=== PATIENT | female | born 1965 | race Caucasian/White ===

== ENCOUNTER 2018-11-27 17:30 | Emergency (ER) | payer OTHER ==
[2018-11-27 18:48] VITALS: BP 132/69; PULSE 86; RESP 18; TEMP 98.5
[2018-11-27] MEDS ORDERED: KETOROLAC 60 MG/2 ML VIAL IM STA (19:39)
--- NOTE | 2018-11-27 19:41 | ED ---
General Adult HPI - General Chief complaint: Extremity Injury, Lower Stated complaint: rt sided hip pain Time Seen by Provider: 11/27/18 18:54 Source: patient, RN notes reviewed, old records reviewed Mode of arrival: ambulatory Limitations: no limitations - History of Present Illness Initial comments: 53-year-old female patient with no pertinent past history presents to ED with approximately 5 months of pain in lumbar spine that radiates down posterior right leg. Patient describes it as a sharp stabbing and burning pain. Patient has tried multiple remedies for this including physical therapy, chiropractor, none of which have been ultimately effective. Patient reports that the pain waxes and wanes. It is worse with exertion. Patient denies any loss of bowel or bladder control, lower extremity weakness, saddle anesthesia, fever/chills, IV drug use. Patient is ambulatory without difficulty. Patient denies all other complaints. Systemic: Pt denies fatigue, fever/chills, rash. Pt denies weakness, night sweats, weight loss. Neuro: Pt denies headache, visual disturbances, syncope or pre-syncope. HEENT: Pt denies ocular discharge or irritation, otalgia, rhinorrhea, pharyngitis or notable lymphadenopathy. Cardiopulmonary: Pt denies chest pain, SOB, heart palpitations, dyspnea on exertion. Abdominal/GI: Pt denies abdominal pain, n/v/d. : Pt denies dysuria, burning w/ urination, frequency/urgency. Denies new onset urinary or bowel incontinence. MSK: Pt denies loss of strength or function in extremities. Neuro: Pt denies new onset weakness, paresthesias. - Related Data Home Medications Medication Instructions Recorded Confirmed Hydrochlorothiazide [Hydrodiuril] 25 mg PO BID 05/02/14 03/15/15 Previous Rx's Medication Instructions Recorded traMADol HCl [Ultram] 50 mg PO Q6H PRN #20 tab 03/15/15 Ibuprofen [Motrin] 600 mg PO Q6HR PRN #40 day 11/27/18 predniSONE 50 mg PO DAILY #5 tab 11/27/18 Allergies Allergy/AdvReac Type Severity Reaction Status Date / Time codeine Allergy Nausea & Verified 11/27/18 18:43 Vomiting Review of Systems ROS Statement: Those systems with pertinent positive or pertinent negative responses have been documented in the HPI. ROS Other: All systems not noted in ROS Statement are negative. Past Medical History Additional Past Medical History / Comment(s): RENAL CALCULUS History of Any Multi-Drug Resistant Organisms: None Reported Past Surgical History: Appendectomy, Orthopedic Surgery, Tubal Ligation Additional Past Surgical History / Comment(s): LEFT KNEE ARTHROSCOPY, BIOPSY ON TONGUE FOR PRE CA CELLS, NECK FUSION C-6-7, OPEN SX TO REMOVE KIDNEY STONE Past Anesthesia/Blood Transfusion Reactions: Postoperative Nausea & Vomiting ( PONV) Additional Past Anesthesia/Blood Transfusion Reaction / Comment(s): NOT AWARE OF FAMILY HX R/T ADOPTED Past Psychological History: No Psychological Hx Reported Smoking Status: Former smoker Past Alcohol Use History: None Reported Past Drug Use History: None Reported General Exam - General Exam Comments Initial Comments: Constitutional: NAD, AOX3, Pt has pleasant affect. HEENT: NC/AT, trachea midline, neck supple, no lymphadenopathy. Posterior pharynx non erythematous, without exudates. External ears appear normal, without discharge. Mucous membranes moist. Eyes PERRLA, EOM intact. There is no scleral icterus. No pallor noted. Cardiopulmonary: RRR, no murmurs, rubs or gallops, no JVD noted. Lungs CTAB in anterior and posterior conrad. No peripheral edema. Abdominal exam: Abdomen soft and non-distended. Abdomen non-tender to palpation in all 4 quadrants. Bowel sounds active in LLQ. No hepatosplenomegaly. No ecchymosis Neuro: CN II-XII grossly intact. No nuchal rigidity. MSK: 5 out of 5 strength quadriceps and psoas. Patient ambulatory, heel to toe walking intact. Right straight leg raise positive. Left straight leg raise negative. No posterior calf tenderness bilaterally, homans sign negative bilaterally. Posterior tibialis and radial pulse +2 bilaterally. Sensation intact in upper and lower extremities. Full active ROM in upper and lower extremities, 5/5 stregnth. Limitations: no limitations Course Vital Signs 11/27/18 18:44 Temperature 98.5 F Pulse Rate 86 Respiratory 18 Rate Blood Pressure 132/69 O2 Sat by Pulse 98 Oximetry Medical Decision Making - Medical Decision Making 53-year-old female patient with no pertinent past history presents to ED with approximately 5 months of pain in lumbar spine that radiates down posterior right leg. Patient describes it as a sharp stabbing and burning pain. Patient has tried multiple remedies for this including physical therapy, chiropractor, none of which have been ultimately effective. Patient reports that the pain waxes and wanes. It is worse with exertion. Patient denies any loss of bowel or bladder control, lower extremity weakness, saddle anesthesia, fever/chills, IV drug use. Patient is ambulatory without difficulty. Patient denies all other complaints. Pt VSS, afebrile. Physical exam displayed: 5 out of 5 strength quadriceps and psoas. Patient ambulatory, heel to toe walking intact. Right straight leg raise positive. Left straight leg raise negative. No posterior calf tenderness bilaterally, homans sign negative bilaterally. Posterior tibialis and radial pulse +2 bilaterally. Sensation intact in upper and lower extremities. Full active ROM in upper and lower extremities, 5/5 stregnth. Shared decision making, patient decided to forego lumbar imaging. Patient improved with Toradol administration. Patient to follow up with primary care physician, orthopedic consult. Patient prescribed 5 days of by mouth prednisone, nonsteroidal anti-inflammatories. Case discussed in depth with Dr. Ambriz. Disposition Clinical Impression: Sciatica, Lumbar back pain Disposition: HOME SELF-CARE Condition: Stable Instructions (If sedation given, give patient instructions): Sciatica (ED) Additional Instructions: Patient to adhere to previously discussed treatment plan and will take medication(s) as directed. Patient to follow up with PCP in 1-2 days. Patient to return to ED if symptoms do not improve. Prescriptions: Ibuprofen [Motrin] 600 mg PO Q6HR PRN #40 day PRN Reason: Pain predniSONE 50 mg PO DAILY #5 tab Is patient prescribed a controlled substance at d/c from ED?: No Referrals: Nancy Russo MD [Primary Care Provider] - 1-2 days Alejandro Han DO [Doctor of Osteopathic Medicine] - 1-2 days
== END 2018-11-27 20:01 | disposition home or self-care (01) ==
LOC: EC 17:30
DX: M54.41 Lumbago with sciatica, right side (principal); Z79.899 Other long term (current) drug therapy; Z88.5 Allergy status to narcotic agent; Z87.891 Personal history of nicotine dependence; Z98.1 Arthrodesis status
CPT/HCPCS: 99283; 96372; J1885